=== PATIENT | male | born 2000 | race Caucasian/White ===

== ENCOUNTER 2020-08-24 12:09 | Emergency (ER) | payer BC, SELFPAY ==
--- NOTE | ~2020-08-24 | XR_ITS ---
XR abdomen/kub 1V DATE: 08/24/2020 17:09 INDICATION: Left ureteropelvic junction calculus TECHNIQUE: AP projection, 2 views COMPARISON: 08/24/[address] abdomen pelvis FINDINGS: There is an approximately 7 mm calcified calculus overlying the proximal left ureter at the upper L2 level. No other urinary tract calcification. The psoas shadows are intact. No visceromegaly is evident. There is no evidence of bowel obstruction. IMPRESSION: 7 millimeter calcified calculus overlying the proximal left ureter at upper L2 level Reviewed, dictated and finalized at Location [facility]. Reviewed, dictated and finalized at location A.
--- NOTE | ~2020-08-24 | CT_ITS ---
EXAMINATION: CT abdomen pelvis wo con EXAM DATE: 08/24/2020 15:41 INDICATION: Left flank pain. TECHNIQUE: Spiral CT of the abdomen and pelvis was performed without contrast. Axial, coronal and sag ittal images were reviewed. The dose-length product (DLP) for this examination was 1025.64 mGy-cm. The exposure was tailored according to patient size (auto mA exposure control), and iterative reconst ruction (ASIR) was used as additional dose reduction technique. There is no prior study for comparis on. FINDINGS: There is a 6 x 7 mm stone in the left ureteropelvic junction, mild obstructive nephropathy. No other genitourinary calcifications. The prostate is unremarkable. The bladder is unremarkable. There is hepatic steatosis without suspicious focal lesion identified. Spleen, adrenal glands, pancr eas are unremarkable. Gallbladder is unremarkable. No biliary obstruction. There is no retroperito lala or pelvic lymphadenopathy. Tiny umbilical fat-containing hernia. The appendix is normal. The stomach and small bowel are unremarkable. There is expected amount of c olonic stool. No free intraperitoneal gas. The heart is normal in size. There are no pericardial or pleural effusions. The lung bases are unremarkable. There are no osteoblastic or osteolytic les ions identified. IMPRESSION: Left UPJ 6 x 7 mm stone, mild obstructive nephropathy. Reviewed, dictated and finalized at location B.
[2020-08-24 12:36] VITALS: BP 150/108; PULSE 95; RESP 16; TEMP 36.4; O2SAT 95
[2020-08-24 12:59] LABS: Basophils Absolute Auto 0.1 K/mm3 (0.0-0.1); Basophils Percent Auto 0.5 % (0.2-1.2); Eosinophils Absolute Auto 0.1 K/mm3 (0-0.3); Eosinophils Percent Auto 0.9 % (0-4.4); Hematocrit 49.7 % (42.0-52.0); Hemoglobin 17.1 g/dL (14.0-18.0); Immature Granulocyte Absolute 0.06 K/mm3 (0.00-0.031); Immature Granulocyte Percent A 0.5 % (0-0.5); Lymphocytes Absolute Auto 2.87 K/mm3 (0.9-3.2); Lymphocytes Percent Auto 21.9 % (18.3-44.2); Mean Corpuscular HGB Conc 34.4 g/dl (32-36); Mean Corpuscular Hemoglobin 28.7 pg (26-34); Mean Corpuscular Volume 83.4 fl (80-100); Mean Platelet Volume 10.3 fl (7.4-10.4); Monocytes Absolute Auto 0.6 K/mm3 (0.1-0.6); Monocytes Percent Auto 4.7 % (2.6-8.5); Neutrophils Absolute Auto 9.4 K/mm3 (1.3-6.7); Neutrophils Percent Auto 71.5 % (45.5-73.1); Platelet Count Result 303 k/mm3 (150-375); Red Blood Count 5.96 M/mm3 (4.6-6.20); Red Cell Distribution Width 12.9 % (11.5-14.5); White Blood Count 13.1 K/mm3 (4.5-10.0)
[2020-08-24 13:13] LABS: Alanine Aminotransferase 114 U/L (4-50); Albumin Level 4.8 g/dL (3.5-5.1); Alkaline Phosphatase 80 U/L (38-126); Anion Gap 10 mmol/L (8-16); Aspartate Amino Transferase 44 U/L (17-59); Bilirubin,Total 0.8 mg/dL (0.2-1.3); Blood Urea Nitrogen 15 mg/dL (9-20); Carbon Dioxide 26 mmol/L (22-30); Chloride 104 mmol/L (98-107); Estimated CRCL calculation 141 ml/min; Estimated Glomerular Filt Rate > 60; Glucose 144 mg/dL (75-110); Lipase 105 U/L (23-300); Potassium 4.1 mmol/L (3.4-5.0); Sodium 140 mmol/L (137-145)
[2020-08-24 14:23] VITALS: BP 179/125; PULSE 96; RESP 18; O2SAT 100
[2020-08-24 15:10] VITALS: PULSE 100; RESP 16; TEMP 36.8; O2SAT 96
[2020-08-24 15:30] VITALS: BP 182/97; PULSE 99; RESP 24; TEMP 36.6; O2SAT 96
--- NOTE | 2020-08-24 15:36 | PC.NURSE ---
Patient is in CT at this time.
[2020-08-24 16:30] VITALS: BP 154/81; PULSE 103; RESP 21; TEMP 36.8; O2SAT 96
--- NOTE | 2020-08-24 16:35 | ED.ABDPAIN ---
HPI - Abdominal Pain General Chief Complaint: Abdominal Pain Stated Complaint: abd and back pain left Time Seen by Provider: 08/24/20 15:23 Source: patient Mode of arrival: ambulatory Limitations: no limitations History of Present Illness HPI narrative: 20-year-old with no major medical problems here with complaints of left flank pain for past 1 week. Patient states that pain is on and off at times it is very intense and sharp in nature now the pain is radiating into his left lower abdomen. He denies any nausea, vomiting or fever. No history of blood in the urine. MD elicited complaint: abdominal pain (left) and flank pain (left) Pertinent past history: none Pain Consistency: intermittent Location: L flank Severity: mild Quality: sharp Radiation: LLQ Migration to: no migration Exacerbating factors: nothing Relieving factors: nothing Related Data Allergies Allergy/AdvReac Type Severity Reaction Status Date / Time No Known Allergies Allergy Verified 08/24/20 15:20 Review of Systems Review of Systems: All systems reviewed & are unremarkable except as noted in HPI and below Constitutional: Constitutional: Reports no additional constitutional complaints Eyes: Eyes: Reports no additional eye complaints ENT: Reports system reviewed and no additional complaints, except as documented Cardiovascular: Cardiovascular: Reports no additional cardiovascular complaints Respiratory: Respiratory: Reports no additional respiratory complaints Gastrointestinal: Gastrointestinal: Reports as per HPI Genitourinary: Genitourinary: Reports no additional male genitourinary complaints Musculoskeletal: Musculoskeletal: Reports no additional musculoskeletal complaints Exam Narrative: Exam Narrative: GENERAL: Well-appearing, obese, and in no acute distress. HEAD: Normocephalic, atraumatic. EYES: PERRLA and EOMI.. NECK: Supple. CHEST: Clear to auscultation. No respiratory distress. HEART: Regular rate and rhythm. No murmur heard. Normal peripheral pulses. ABDOMEN: Soft, nontender, nondistended, normal active bowel sounds. No CVA tenderness EXTREMITIES: Normal range of motion. No edema. SKIN: Warm, dry, no rash. NEURO: No focal deficits. Alert and oriented x3. PSYCH: Normal mood and affect. Course Course Emergency Course: Inform patient about his lab work, CT findings. I discussed CT findings with , as patient has no pain and he prefers outpatient management will see him in the office in 1 day and schedule a procedure for stenting and lithotripsy. Patient does feel comfortable going home. I also advised him to drink plenty of fluids, take pain medication as prescribed return to the ER if there is increased pain or fever Vital Signs Vital signs: Vital Signs Temperature 36.4 C L 08/24/20 12:36 Pulse Rate 95 08/24/20 12:36 Respiratory Rate 16 08/24/20 12:36 Blood Pressure 150/108 H 08/24/20 12:36 Pulse Oximetry 95 08/24/20 12:36 Temperature 36.8 C 08/24/20 16:30 Pulse Rate 103 H 08/24/20 16:30 Respiratory Rate 21 H 08/24/20 16:30 Blood Pressure 154/81 H 08/24/20 16:30 Pulse Oximetry 96 08/24/20 16:30 MDM - Abdominal Pain Lab Data Result diagrams: 08/24/20 12:49 08/24/20 12:49 Labs: Lab Results 08/24/20 08/24/20 08/24/20 Range/Units 12:49 12:49 16:51 WBC 13.1 H (4.5-10.0) K/mm3 RBC 5.96 (4.6-6.20) M/mm3 Hgb 17.1 (14.0-18.0) g/dL Hct 49.7 (42.0-52.0) % MCV 83.4 (80-100) fl MCH 28.7 (26-34) pg MCHC 34.4 (32-36) g/dl RDW 12.9 (11.5-14.5) % Plt Count 303 (150-375) k/mm3 MPV 10.3 (7.4-10.4) fl Immature Gran % (Auto) 0.5 (0-0.5) % Neut % (Auto) 71.5 (45.5-73.1) % Lymph % (Auto) 21.9 (18.3-44.2) % [place] % (Auto) 4.7 (2.6-8.5) % Eos % (Auto) 0.9 (0-4.4) % Baso % (Auto) 0.5 (0.2-1.2) % Lymph # (Auto) 2.87 (0.9-3.2) K/mm3 [place] # (Auto) 0.6 (0.1-0.6) K/mm3 Eos # (Aut
--- NOTE | 2020-08-24 16:59 | WPDURCON ---
Assessment and Plan Assessment and plan (1) Left ureteral stone: Code(s): N20.1 - Calculus of ureter Status: Acute Assessment and Plan: He is currently pain free. He would like an attempted outpatient management in the form of lithotripsy should the stone be visible on KUB. He will be sent home with pain medications. Will get a KUB before he leaves. I told him to return to the ER for refractory pain or fevers or symptoms of urinary tract infection. We will contact him on Thursday and try to get him scheduled for elective lithotripsy. We discussed the risks of lithotripsy including bleeding, infection, damage to the kidney, lack of stone breakage, pain with stone passage. Again if he runs into problems with pain before he can be scheduled then he has been instructed to return to the emergency room. (2) Hydronephrosis: Code(s): N13.30 - Unspecified hydronephrosis Status: Acute Assessment and Plan: Secondary to ureteral stone Urology Consult Note HPI Date Seen: 08/24/20 Primary Care Provider: Cortes New MD Consult Narrative Narrative: Servando Gracia is a 20 year old male seen at request of the emergency room here at [facility]. He has had a 7-10 day of intermittent left-sided back discomfort. This culminated in significant pain this morning with some nausea and vomiting. He was brought to the emergency room and diagnosed with a 6 mm left proximal ureteral stone with mild left hydronephrosis. This is 1st stone episode. He denies in a symptoms of urinary tract infection. He is currently pain-free. A KUB has not been performed as of yet. He is not on any blood thinners. His past medical history, past surgical history is negative. He is currently a student Review of Systems Review of Systems: All systems reviewed & are unremarkable except as noted in HPI and below Meds Home Medications and Allergies Home Medications Medication Instructions Recorded Confirmed Type No Home Medications 08/24/20 08/24/20 History Allergies Allergy/AdvReac Type Severity Reaction Status Date / Time No Known Allergies Allergy Verified 08/24/20 15:20 Vital Signs Vital Signs - 24 hr 08/24/20 12:36 08/24/20 14:23 08/24/20 15:10 Temperature 97.5 F L 98.2 F Pulse Rate 95 96 100 Respiratory Rate 16 18 16 Blood Pressure 150/108 H 179/125 H Pulse Oximetry 95 100 96 08/24/20 15:30 08/24/20 16:30 Temperature 97.9 F 98.3 F Pulse Rate 99 103 H Respiratory Rate 24 H 21 H Blood Pressure 182/97 H 154/81 H Pulse Oximetry 96 96 Exam Const: General: cooperative, healthy appearing, comfortable and no acute distress HENMT: Head: normal to inspection Ears: hearing grossly normal bilaterally Eyes: General: appearance normal, both eyes and all related structures Neck: Neck: normal visual inspection Resp: Effort & Inspection: normal respiratory effort, able to speak in complete sentences and no cough GI: Inspection: normal to inspection Skin: General skin exam: normal color and no rashes or lesions noted Neuro: General: patient oriented x3 Extrem: General: normal to inspection and full ROM Psych: Appearance: grossly normal Results Labs CBC & Chem 7: 08/24/20 12:49 08/24/20 12:49 Labs: Short CBC 08/24/20 Range/Units 12:49 WBC 13.1 H (4.5-10.0) K/mm3 Hgb 17.1 (14.0-18.0) g/dL Hct 49.7 (42.0-52.0) % Plt Count 303 (150-375) k/mm3 BMP 08/24/20 12:49 Sodium 140 Potassium 4.1 Chloride 104 Carbon Dioxide 26 BUN 15 Creatinine 1.10 Glucose 144 H Calcium 10.0 Liver Function 08/24/20 Range/Units 12:49 Total Bilirubin 0.8 (0.2-1.3) mg/dL AST 44 (17-59) U/L ALT 114 H (4-50) U/L Alkaline Phosphatase 80 (38-126) U/L Albumin 4.8 (3.5-5.1) g/dL
[2020-08-24 17:10] LABS: Add Urine Microscopic? YES; Appearance Urine Cloudy (Clear); Bilirubin Urine Negative (Negative); Blood Urine 3+ (Negative); Budding Yeast Urine Present /hpf; Color Urine Yellow (Yellow); Glucose Urine UA Negative (Negative); Ketones Urine Negative (Negative); Leukocyte Esterase Ur Negative LEU/UL (Negative); Mucus Urine Few /lpf; Nitrate Urine Negative (Negative); Protein Urine 2+ mg/dL (Negative); RBC Urine >75 /hpf (0-2); Specific Grav Ur 1.023 (1.001-1.035); Squamous Epithelial Cell Urine Rare /hpf (Few); Urobilinogen Urine Negative mg/dL (<2.0); WBC Urine 0-3 /hpf
[2020-08-24 17:35] VITALS: BP 154/81; PULSE 103; RESP 16; TEMP 36.6; O2SAT 99
== END 2020-08-24 17:35 | disposition home or self-care (01) ==
PROVIDERS: Emergency Provider Family Medicine; PCP Family Medicine
DX: N13.8 Other obstructive and reflux uropathy (principal); N20.1 Calculus of ureter
CPT/HCPCS: 36415; 74018; 74176; 80053; 81001; 83690; 85025; 87086; 99284

== ENCOUNTER 2020-09-21 16:20 | Outpatient (CLI) | payer BC, SELFPAY ==
--- NOTE | ~2020-09-21 | XR_ITS ---
EXAMINATION: XR abdomen/kub 1V DATE: 09/21/2020 16:36 INDICATION: Left ureteral stone. TECHNIQUE: A supine view of the abdomen on 2 radiographs was obtained. COMPARISON: 08/24/2020 FINDINGS: The previously seen stone in the proximal left ureter is no longer visualized and may have passed. No other evident urolithiasis. Normal bowel gas pattern. Bones are unremarkable. IMPRESSION: 1. Normal study. No evident urolithiasis. Reviewed, dictated and finalized at location A.
== END 2020-09-21 16:21 | disposition home or self-care (01) ==
LOC: ANHIMG 16:23
PROVIDERS: PCP Family Medicine; Visit Provider Urology
DX: N20.1 Calculus of ureter (principal); Z87.442 Personal history of urinary calculi
CPT/HCPCS: 74018

== ENCOUNTER 2021-03-19 14:06 | Outpatient (CLI) | payer OTHER, SELFPAY ==
--- NOTE | ~2021-03-19 | XR_ITS ---
EXAMINATION: XR abdomen/kub 1V EXAM DATE: 03/19/2021 14:40 INDICATION: Left ureteral stone. TECHNIQUE: Frontal projection(s) of the abdomen for interpretation. Comparison is made to prior exami nation from 09/21/2020. FINDINGS: There is expected amount of colonic stool and gas. No small bowel dilation, nonobstruct rochelle bowel gas pattern. There are no suspicious calcifications identified. There is no organomegal y suspected. The bones are unremarkable. Lung bases unremarkable. IMPRESSION: No suspicious calcifications identified. Reviewed, dictated and finalized at location A. ICKMAN HELPER
== END 2021-03-19 14:07 | disposition home or self-care (01) ==
PROVIDERS: PCP Family Medicine; Visit Provider Urology
DX: N20.1 Calculus of ureter (principal)
CPT/HCPCS: 74018

== ENCOUNTER 2022-04-01 14:22 | Outpatient (CLI) | payer OTHER, SELFPAY ==
--- NOTE | ~2022-04-01 | XR_ITS ---
EXAM: XR abdomen/kub 1V DATE: 04/01/2022 14:39 HISTORY: LEFT RENAL STONE . COMPARISON: 03/19/2021, CT abdomen and pelvis 08/24/2020. FINDINGS: Normal bowel gas pattern. No organomegaly. No abnormal abdominal calcification. Mild left hip joint space narrowing. Otherwise the regional bones and soft tissues are normal for age. IMPRESSION: No suspicious calcifications identified. Reviewed, dictated and finalized at location K. AL TAXONOMIST
== END 2022-04-01 14:23 | disposition home or self-care (01) ==
LOC: ANHIMG 14:25
PROVIDERS: PCP Family Medicine; Visit Provider Urology
DX: N20.0 Calculus of kidney (principal)
CPT/HCPCS: 74018

== ENCOUNTER 2023-04-07 13:17 | Outpatient (CLI) | payer OTHER, SELFPAY ==
--- NOTE | ~2023-04-07 | XR_ITS ---
Supine and upright views of the abdomen Clinical history: Left renal stone COMPARISON: 04/01/2022 Findings: Bowel gas pattern is nonspecific. No evidence for obstruction or free air. No abnormal mass lesion or calcification is seen. Osseous structures are intact. Impression: No significant abnormality is seen. Reviewed, dictated and finalized at [facility]. ESSIONAL SECURITY OFFICER Impression: No significant abnormality is seen.
== END 2023-04-07 13:18 | disposition home or self-care (01) ==
PROVIDERS: PCP Family Medicine; Visit Provider Urology
DX: N20.0 Calculus of kidney (principal)
CPT/HCPCS: 74018

== ENCOUNTER 2023-10-12 07:46 | Outpatient (RCR) | payer OTHER, SELFPAY ==
--- NOTE | 2023-10-12 08:29 | PTOPEVAL1 ---
Assessment and note entered by Fer Rodriguez Evaluation Information Assessment Status Evaluation ICD-10 Condition Codes (PT) M54.16 Onset 10/02/23 Subjective Information Pt. reports that he woke on 10/02/23 with right sided back pain. He states that he did some career specialist and noticed pain centralize. He states that it has since moved to the left side and will radiate down the left leg to the calf. He has tingling in the left foot. He reports that pain does not disrupt his sleep. He states that pain is increased with bending and sitting in one position. He state that is relieved with Tylenol and rest. He reports that he has not had x-ray or MRI at this time. He reports that he has attempted anti-inflammatory and muscle relaxor with no relief. 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 He states that his goal is to reduce his pain. Reported Pain Level Pain Score 6: Self Report Assessment PT Clinical Summary Pt. is a 23 year old male who enters the clinic with back pain and left l.e. pain, consistent with discogenic pain. He presents with impaired trunk mobility, impaired l.e. strength, impaired postural awareness, functional decline and pain. Continued skilled PT is indicated in order to improve these areas to allow the pt. to be able to complete all IADL's with improved comfort. Plan of Care Interventions Electrical Stimulation,Hot Pack/Cold Pack,Manual Therapy,Mechanical Traction,Neuro Re-education, Patient/Caregiver Educati,Therapeutic Activities, Therapeutic Exercise PT Services Indicated Yes Treatment Frequency and 2x/week x 10 visits Duration These treatments will address the objective and functional deficits as defined above. The patient will be advanced safely and appropriately in order for the patient to progress towards his/her prior level of function. Additional exercises will be introduced and as well as a comprehensive home exercise program upon discharge, if needed, ?to ensure carryover of functional gains achieved in the clinic. This treatment plan has been reviewed and agreement upon by the patient.
--- NOTE | 2023-10-12 08:30 | OPREHPOC ---
Outpatient Therapy Plan of Care This is a Multidisciplinary Plan of Care that may contain components documented by all disciplines (PT, OT, and ST.) PT Problem 1 PT Problem #1 Knowledge Deficit PT Goal 1 Goal Pt. will be independent with a HEP addressing trunk mobility and core strength. Target Visit 2 PT Problem 2 PT Problem #2 Impaired Range of Motion PT Goal 1 Goal Pt. will demonstrate ability to reach to the floor without noted pain. Target Visit 10 PT Problem 3 PT Problem #3 Impaired Strength PT Goal 1 Goal Pt. will present with 5/5 gross left l.e. strength . Target Visit 10 PT Problem 4 PT Problem #4 Impaired Functional Mobil PT Goal 1 Goal Pt. will be able to sit for duration of 2 hours without pain increase to complete job related duties. Pt. will be able to lift 25# from floor to waist without pain for 10 reps Target Visit 10
--- NOTE | 2023-10-29 08:09 | OPREHPOC ---
Outpatient Therapy Plan of Care This is a Multidisciplinary Plan of Care that may contain components documented by all disciplines (PT, OT, and ST.) PT Problem 1 PT Problem #1 Knowledge Deficit PT Goal 1 Goal / Goal Update Pt. will be independent with a HEP addressing trunk mobility and core strength. Target Visit 2 Progress Met PT Goal 2 Goal / Goal Update Continue to progress. PT Problem 2 PT Problem #2 Impaired Range of Motion PT Goal 1 Goal / Goal Update Pt. will demonstrate ability to reach to the floor without noted pain. Target Visit 16 Progress Not Met PT Problem 3 PT Problem #3 Impaired Strength PT Goal 1 Goal / Goal Update Pt. will present with 5/5 gross left l.e. strength . Target Visit 16 Progress Not Met PT Goal 2 Goal / Goal Update continue PT Problem 4 PT Problem #4 Impaired Functional Mobil PT Goal 1 Goal / Goal Update Pt. will be able to sit for duration of 2 hours without pain increase to complete job related duties. Pt. will be able to lift 25# from floor to waist without pain for 10 reps Target Visit 16 Progress Not Met PT Goal 2 Goal / Goal Update continue
--- NOTE | 2023-10-29 08:09 | PTOPPROG ---
Assessment and note entered by Korin Jose, PT Evaluation Information Assessment Status Progress ICD-10 Condition Codes (PT) M54.16 Onset 10/02/23 Subjective Information Servando reports his back and left leg pain is still present. He does feel the PT is helping as he has noted he can sit for longer periods now. He is able to sit upright for 10 minutes but hunched forward he can tolerate an hour. Prior to onset of PT he could not tolerate more than one minute. He does note his left knee is starting to hurt from limping though and he had increased pain on after taking two hour long round trips in a vehicle. He still struggles to don socks. He also notes the pain has changed from constant sharp pain to more of a throbbing pain. Assessment PT Clinical Summary Servando Gracia has completed 6 skilled PT visits for low back pain with radicular symptoms in the LE. He is reporting improved tolerance to sitting since initiating PT however, he still has limitations with sitting, driving, and pain in his left LE that causes him to limp. He would like to continue skilled PT to further address pain and limitations. He is objectively demonstrating improved lumbar flexion AROM however, he continues to have severe limitations into flexion and increased pain is noted. He also demonstrates ongoing deficits in core strength as well as positive special tests indicating lumbar nerve root irritation. He will continue to benefit from skilled PT. Plan of Care Interventions Electrical Stimulation,Hot Pack/Cold Pack,Manual Therapy,Neuro Re-education,Patient/Caregiver Educati,Therapeutic Activities,Therapeutic Exercise PT Services Indicated Yes Treatment Frequency and We would like to continue skilled PT 2 times a Duration week for 8 additional visits. These treatments will address the objective and functional deficits as defined above. The patient will be advanced safely and appropriately in order for the patient to progress towards his/her prior level of function. Additional exercises will be introduced and as well as a comprehensive home exercise program upon discharge, if needed, ?to ensure carryover of functional gains achieved in the clinic. This treatment plan has been reviewed and agreement upon by the patient.
== END 2024-01-10 23:59 | disposition home or self-care (01) ==
LOC: CHSPT 07:46
PROVIDERS: PCP Nurse Practitioner Family; Visit Provider Nurse Practitioner Family
DX: M54.42 Lumbago with sciatica, left side (principal)
CPT/HCPCS: 97012; 97014; 97110; 97140; 97161; G0283

== ENCOUNTER 2023-11-06 16:40 | Outpatient (CLI) | payer OTHER, SELFPAY ==
--- NOTE | ~2023-11-06 | XR_ITS ---
EXAMINATION: XR lumbar spine 2-3V DATE: 11/06/2023 16:55 INDICATION: Low back pain. TECHNIQUE: 3 views of lumbar spine were obtained. COMPARISON: CT abdomen and pelvis 08/24/2020 FINDINGS: There is 4 degrees levocurvature of lumbar spine. Vertebral body heights and intervertebral disc heights are normal. The facet joints are unremarkable. IMPRESSION: 1. No etiology for the patient's symptoms. Reviewed, dictated and finalized at location A.
== END 2023-11-06 16:41 | disposition home or self-care (01) ==
LOC: CHSIMG 16:43
PROVIDERS: PCP Family Medicine; Visit Provider Nurse Practitioner Family
DX: M54.42 Lumbago with sciatica, left side (principal)
CPT/HCPCS: 72100

== ENCOUNTER 2023-11-14 07:01 | Outpatient (CLI) | payer OTHER, SELFPAY ==
--- NOTE | ~2023-11-14 | MR_ITS ---
EXAMINATION: MR lumbar spine wo con DATE: 11/14/2023 08:02 INDICATION: Low back pain. TECHNIQUE: Magnetic resonance imaging (MRI) of the lumbar spine was performed without intravenous con trast. Sequences included sagittal T2-weighted FSE, sagittal T2-weighted FS FSE, sagittal T1-weighted FSE, and axial T2-weighted FSE. COMPARISON: Lumbar spine radiographs 11/06/2023 FINDINGS: Alignment is normal. Vertebral body heights are normal. Intervertebral disc heights are nor mal. The distal spinal cord signal intensity is normal. The conus medullaris is at L1. The following disc levels are specifically discussed: L1-L2: The disc does not extend beyond the endplate margin. There is moderate bilateral facet joint o steoarthritis. There is no neural foraminal stenosis. There is no central canal stenosis. L2-L3: The disc does not extend beyond the endplate margin. There is moderate bilateral facet joint o steoarthritis. There is no neural foraminal stenosis. There is no central canal stenosis. L3-L4: The disc is bulging. There is moderate bilateral facet joint osteoarthritis. There is mild dianelys ateral neural foraminal stenosis. There is mild central canal stenosis. L4-L5: The disc is bulging and has an annular fissure. There is severe bilateral facet joint osteoart hritis. There is moderate bilateral neural foraminal stenosis. There is mild central canal stenosis. L5-S1: The disc is bulging. There is severe bilateral facet joint osteoarthritis. There is mild bilat eral neural foraminal stenosis. There is mild central canal stenosis. IMPRESSION: 1. Moderate spondylosis at L4-L5 and mild spondylosis at other levels. Reviewed, dictated and finalized at location A.
== END 2023-11-14 07:02 | disposition home or self-care (01) ==
PROVIDERS: PCP Family Medicine; Visit Provider Nurse Practitioner Family
DX: M54.42 Lumbago with sciatica, left side (principal); M43.06 Spondylolysis, lumbar region
CPT/HCPCS: 72148

== ENCOUNTER 2024-04-07 13:43 | Outpatient (CLI) | payer OTHER, SELFPAY ==
--- NOTE | ~2024-04-07 | XR_ITS ---
EXAM: XR abdomen/kub 1V DATE: 04/07/2024 14:11 HISTORY: Lt renal stone . COMPARISON: 04/07/2023 at 1:34 PM. FINDINGS: Clear lung bases. Normal bowel gas pattern. No organomegaly. No abnormal abdominal calcifi cation. Regional bones and soft tissues normal for age. IMPRESSION: Unremarkable abdominal radiograph findings. Reviewed, dictated and finalized at location K. ESTRA CONDUCTOR
== END 2024-04-07 13:44 | disposition home or self-care (01) ==
LOC: ANHIMG 13:51
PROVIDERS: PCP Family Medicine; Visit Provider Urology
DX: N20.0 Calculus of kidney (principal)
CPT/HCPCS: 74018

== ENCOUNTER 2025-02-21 15:33 | Outpatient (CLI) | payer OTHER, SELFPAY ==
--- NOTE | ~2025-02-21 | XR_ITS ---
EXAMINATION: XR tibia fibula RT 2V, 02/21/2025 15:55 GUIDE FOREIGN TOUR HISTORY: PAIN IN RIGHT ANKLE, PAIN IN RIGHT ANKLE AND JOINTS OF RIGHT COMPARISON: No comparisons available. Findings: No acute fracture or malalignment. No significant degenerative changes. Soft tissues unremarkable. Impression: No acute fracture or malalignment. Reviewed, dictated and finalized at location P. E FOREIGN TOUR Impression: No acute fracture or malalignment.
--- NOTE | ~2025-02-21 | XR_ITS ---
EXAMINATION: XR ankle RT min 3V, 02/21/2025 15:55 EMS DRIVER HISTORY: PAIN IN RIGHT ANKLE COMPARISON: No comparisons available. Findings: No acute fracture or malalignment. No significant degenerative changes. Soft tissues unremarkable. Impression: No acute fracture or malalignment. Reviewed, dictated and finalized at location P. DRIVER Impression: No acute fracture or malalignment.
--- OUTSIDE RECORDS SUMMARY | 2025-02-21 17:47 | XMS_ITS | Patient Health Record ---
Author Organization [facility] Address [address] [place] [place], [place] [id number] Care Team Providers Care Wares Sorter Name Role Phone DANIELLE REDDY Unavailable [phone] Reason For Referral No Information Social History Social History Additional Details Category Social Info Options Details Migrated Social History Migrated Social History Smoking Status : Never smoked , History of tobacco use : Plan Of Treatment No Information Insurance Providers Payer Name Payer Address Payer Phone Subscriber Number Group Number Insured Name Patient Relationship to Insured Coverage Start Date Coverage End Date [facility] ([facility]) ATTN CLAIMS [address] [place] [address] [id number] JANNY SOLIS Natural Child - Insured has Financial Responsibility
== END 2025-02-21 15:34 | disposition home or self-care (01) ==
PROVIDERS: PCP Family Medicine; Visit Provider Family Medicine
DX: M25.571 Pain in right ankle and joints of right foot (principal)
CPT/HCPCS: 73590; 73610